=== PATIENT | female | born 1995 | race Caucasian/White ===

== ENCOUNTER 2020-06-03 12:41 | Emergency (ER) | payer OTHER ==
[~2020-06-03] VITALS: Ht 175.3 cm; Wt 83.9 kg
--- NOTE | 2020-06-03 14:23 | REP ---
INDICATION: fall. COMPARISON: None. TECHNIQUE: Helical scanning is acquired. 5 mm axial images were reformatted. Coronal MPR images were generated. FINDINGS: Bone window settings demonstrate an intact bony calvarium. There is no evidence of skull fracture or incidental bony calvarial lesion. There is mild mucosal thickening involving the maxillary and ethmoid air cells bilaterally consistent with mild sinusitis. In addition, there are surgical fixation devices along the medial jolly of the maxillary sinuses bilaterally. [employer] view demonstrates mandibular surgical fixation plates bilaterally as well indicating previous surgery. No intraorbital abnormality is seen. On soft tissue window setting images; the lateral, third, and fourth ventricles are normal in size and position. Sullivan-white differentiation pattern is normal above and below the tentorium. There are is no evidence of intracranial hemorrhage. No mass, edema, infarction, or midline shift is seen. No extra-axial fluid collection is appreciated. IMPRESSION: Postsurgical changes in the mandible and maxilla as above. Maxillary sinus and ethmoid sinus mucosal thickening. Otherwise normal noncontrast head CT. No skull fracture or acute intracranial abnormality.. <Electronically signed by Benjamin March > 06/03/20 [id number]
--- NOTE | 2020-06-03 14:25 | REP ---
INDICATION: fall. COMPARISON: NONE. TECHNIQUE: Helical scanning is acquired and 2 mm axial images re-formatted. Coronal MPR images are generated and reviewed. FINDINGS: There are mild mucosal changes affecting the ethmoid air cells and the maxillary sinuses bilaterally. Postsurgical changes with metallic fixation devices are seen along the anterior jolly of the maxillary sinuses bilaterally and there is a fusion plate in each mandibular ramus. No maxillary or mandibular deformity is appreciated. No bony destructive lesion is seen. Orbital margins are intact. Nasal bone and inferior may nasal spine are have an intact appearance. No maxillary or mandibular fracture is appreciated. No orbital fracture is seen. IMPRESSION: Postsurgical changes as above in the mandible and maxilla. Bilateral maxillary and bilateral ethmoid sinus mucosal changes. No acute fracture seen. <Electronically signed by Benjamin March > 06/03/20 [id number]
--- NOTE | 2020-06-03 14:26 | REP ---
INDICATION: fall. COMPARISON: None. TECHNIQUE: Helical scanning is acquired and overlapping 2 mm high resolution axial images were generated and reviewed at bone and soft tissue window settings. Coronal and sagittal multiplanar re-formations images are generated. FINDINGS: There is no evidence of cervical spine element fracture. No skull base fracture is seen. Cervical vertebral body heights are preserved. Alignment is normal. Facet joints are normally aligned bilaterally at each cervical level on multiplanar re-formations images. There is no evidence of intraspinal or paraspinal hematoma. No extra vertebral abnormality is seen. IMPRESSION: Negative CT study of the cervical spine without contrast. No fracture seen. <Electronically signed by Benjamin March > 06/03/20 [id number]
[2020-06-03 14:51] VITALS: BP 110/58
== END 2020-06-03 14:52 | disposition home or self-care (01) ==
LOC: M ED 12:41
DX: S00.83XA Contusion of other part of head, initial encounter (principal); S06.0X0A Concussion without loss of consciousness, initial encounter; W00.0XXA Fall on same level due to ice and snow, initial encounter; Y92.89 Other specified places as the place of occurrence of the external cause; Y99.0 Civilian activity done for income or pay; Z88.5 Allergy status to narcotic agent

== ENCOUNTER 2020-06-09 20:59 | Emergency (ER) | payer OTHER ==
[~2020-06-09] VITALS: Ht 175.3 cm; Wt 83.3 kg
[2020-06-09 21:00] VITALS: BP 126/60
== END 2020-06-09 21:43 | disposition home or self-care (01) ==
LOC: M ED 20:59
DX: S06.0X0A Concussion without loss of consciousness, initial encounter (principal); S04.30XA Injury of trigeminal nerve, unspecified side, initial encounter; W00.0XXA Fall on same level due to ice and snow, initial encounter; Y92.89 Other specified places as the place of occurrence of the external cause; Z88.5 Allergy status to narcotic agent